=== PATIENT | male | born 1960 | race Caucasian/White ===

== ENCOUNTER 2017-06-04 13:51 | Inpatient (IN) | payer OTHER ==
[2017-06-04] MEDS ORDERED: IOPAMIDOL (ISOVUE 370) 100 ML BTL IV ONE ×2 (14:05→14:29)
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
[2017-06-04 14:10] LABS: ABSOLUTE IMMATURE GRANULOCYTES 0.08 10^3/uL (0.00-0.10); ABSOLUTE NRBC COUNT 0.02 10^3/uL (0-0.01); ADD DIFF? NO; ADD MORPH? NO; ADD SCAN? NO; ATYPICAL LYMPHOCYTE FLAG 0 (0-99); FRAGMENT RBC FLAG 0 (0-99); HEMATOCRIT 46.9 % (40.0-51.0); HEMOGLOBIN 16.4 g/dL (13.7-17.5); LEFT SHIFT FLG 10 (0-99); LIPEMIA HEMOLYSIS FLAG 90 (0-99); MEAN CELL VOLUME 91.6 fL (81.5-99.8); MEAN PLATELET VOLUME 11.2 fL (8.7-11.7); NRBC-AUTO% 0.2 % (0.0-0.2); PLATELET CLUMPS FLAG 20 (0-99); PLATELET COUNT 217 10^3/uL (150-400); RED BLOOD CELL COUNT 5.12 10^6/uL (4.40-6.38); RED CELL DISTRIBUTION WIDTH 13.2 % (11.5-15.2)
[2017-06-04 14:19] LABS: INR 1.13 (0.83-1.16); PROTIME(PATIENT) 14.4 SEC (12.0-15.0)
[2017-06-04 14:20] LABS: APTT 30.5 SEC (23.0-38.0)
[2017-06-04 14:33] LABS: ANION GAP 15 mEq/L (8-16); CALCIUM 9.7 mg/dL (8.5-10.4); CARBON DIOXIDE 23 mEq/l (22-31); CHLORIDE 103 mEq/L (97-110); GLOMERULAR FILTRATION RATE > 60; GLUCOSE 122 mg/dL (70-100); POTASSIUM 3.7 mEq/L (3.5-5.2); SODIUM 141 mEq/L (134-144)
[2017-06-04] MEDS ORDERED: ONDANSETRON 4 MG/2 ML VIAL IVP ONE (14:40)
[2017-06-04] MEDS ORDERED: TDAP ADULT 0.5 ML INJ (BOOSTRIX) IM ONE (14:56)
[2017-06-04] MEDS ORDERED: DESMOPRESSIN ACETATE IV ONE (15:17)
[2017-06-04] MEDS ORDERED: NS IV ONE (15:17)
[2017-06-04] MEDS ORDERED: LET GEL TOPICAL 1 EA SYR TP ONE ×2 (15:40→16:02)
[2017-06-04] MEDS ORDERED: HYDROmorphONE/DILAUDID 1 MG/ML SYR ONE (15:41)
[2017-06-04] MEDS ORDERED: LIDOCAINE 2% JELLY 20 ML (UROJECT) ONE (15:41)
--- NOTE | 2017-06-04 15:42 | SOAPPROG ---
SOAP Progress Note Assessment/Plan: did state to me now that he did not take his ASA in 1 week as he donated Platelets 2 days ago. DDAVP cancelled and platelets cancelled. D/W Dr Daily. 06/04/17 15:41 Objective: PT 14.4 SEC (12.0-15.0) 06/04/17 13:58 INR 1.13 (0.83-1.16) 06/04/17 13:58 ICD10 Worksheet Patient Problems: Problems Problem Status Onset Fracture of occiput Acute Humerus fracture Acute Traumatic fracture of spine at T12-L1 level Acute
[2017-06-04] MEDS ORDERED: HYDROmorphONE/DILAUDID 1 MG/ML SYR IVP ONE (15:43)
--- NOTE | 2017-06-04 15:44 | CPEKG ---
Heart Rate: 110 RR Interval: 545 P-R Interval: 184 QRSD Interval: 104 QT Interval: 344 QTC Interval: 466 P [place]: 58 QRS [place]: 56 T Wave [place]: 8 EKG Severity - BORDERLINE ECG - EKG Impression: SINUS TACHYCARDIA EKG Impression: PROBABLE LEFT ATRIAL ABNORMALITY EKG Impression: BORDERLINE ST DEPRESSION, ANTEROLATERAL LEADS Electronically Signed By: Michelle Daily 04-Jun-2017 21:39:10
[2017-06-04] MEDS: levETIRAcetam 750 MG in NS 100 ML IV SCH ×2 (16:00→21:34)
[2017-06-04] MEDS ORDERED: NALOXONE HCL 0.4 MG/ML INJ IVP PRN (16:12)
[2017-06-04] MEDS ORDERED: HYDROmorphONE/DILAUDID 2 MG/ML INJ IVP PRN (16:16)
[2017-06-04] MEDS ORDERED: ONDANSETRON 4 MG/2 ML VIAL IVP PRN (16:17)
[2017-06-04] MEDS ORDERED: HYDROmorphONE/DILAUDID 2 MG/ML INJ IVP ONE (16:40)
[2017-06-04 18:09] LABS: COLOR PALE YELLOW; HEMATOCRIT 42.3 % (40.0-51.0); HEMOGLOBIN 14.3 g/dL (13.7-17.5); LEUKOCYTE ESTERASE,URINE NEGATIVE (NEGATIVE); MEAN CELL HEMOGLOBIN 32.2 pg (27.9-34.1); MEAN CELL HEMOGLOBIN CONCENTR. 33.8 g/dL (32.4-36.7); MEAN CELL VOLUME 95.3 fL (81.5-99.8); NITRITE,URINE NEGATIVE (NEGATIVE); RED BLOOD CELL COUNT 4.44 10^6/uL (4.40-6.38); RED CELL DISTRIBUTION WIDTH 13.4 % (11.5-15.2)
--- NOTE | 2017-06-04 18:13 | TRAUMAPN ---
Assessment/Plan: patient moved to ICU. repeat head CT with significant increased diffuse cerebral swelling - images reviewed with rads and with Dr. Clayton. patient remains comfortable and neurologically normal at present time. tertiary survey with no new findings. plan to proceed with watchful waiting for now. if decompensates, may require occipital craniectomy. no other new plans for now. not safe for arm ORIF until clear by NS - maintain position of comfort - discussed with Dr. Sanchez Objective: Vital Signs Temp Pulse Resp BP Pulse Ox 36.9 C 116 H 22 H 112/86 H 97 06/04/17 17:30 06/04/17 17:30 06/04/17 17:30 06/04/17 17:30 06/04/17 17:30 06/03/17 06/04/17 06/05/17 05:59 05:59 05:59 Intake Total 1650 Balance 1650 PT 14.4 SEC (12.0-15.0) 06/04/17 13:58 INR 1.13 (0.83-1.16) 06/04/17 13:58
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
[2017-06-04 18:25] LABS: MUCUS TRACE /lpf (NONE-1+)
[2017-06-04 18:28] LABS: WBC,URINE NONE SEEN /hpf (0-3)
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
[2017-06-04] MEDS ORDERED: ALTEPLASE 2 MG VIAL IVP PRN (19:07)
[2017-06-04] MEDS ORDERED: niCARdipine/NACL 200 ML IV PRN (19:12)
[2017-06-04] MEDS ORDERED: SODIUM Cl 3% 500 ML IV SCH (19:30)
--- NOTE | 2017-06-04 19:32 | SOAPPROG ---
SOAP Progress Note Assessment/Plan: Assessment: Currently understood oprthopedic extremity injuries are right shoulder Fx/Disl. Possibly open (type 1) Plan: TO OR for ORIF as soon as NS clears for GETA. Anticipate 750-1000 cc blood loss, and 2 hours of anesthesia. Will eval in AM. Currently holding OR spot at 08:30 06/05/17 06/04/17 19:32 06/04/17 19:33 Subjective: Hurt all over. Right shoulder not necessarily worse then anyother place Objective: Vital Signs Temp Pulse Resp BP Pulse Ox 36.5 C 109 H 13 141/60 H 96 06/04/17 18:00 06/04/17 18:00 06/04/17 18:00 06/04/17 18:00 06/04/17 18:00 Laboratory Results 06/04/17 17:50 06/04/17 17:50 06/03/17 06/04/17 06/05/17 05:59 05:59 05:59 Intake Total 1650 Output Total 1400 Balance 250 PT 14.4 SEC (12.0-15.0) 06/04/17 13:58 INR 1.13 (0.83-1.16) 06/04/17 13:58 Numerous abrasions on all 4 extremities. Puncture wounds (2x) superior right shoulder. Sensation intaci in Radial Median ulnar, Axillry and Musculoccutaneous nerve distribution BUE and intact in Femoral, Peroneal, Tibial and sural nerve distributions BLE. Bounding radial and dorsalis pedis pulses with brisk Cap refill in all digits UE and LE. Paina nd anterior deformity at right Shoulder with crepitace noted upon any shoulder movement. Xrays show comunited fracture dislocation of right proximal humerus. Humeral head is anterior to glenoid, shaft of humerus is generally in normal position. ICD10 Worksheet Patient Problems: Problems Problem Status Onset Fracture of occiput Acute Humerus fracture Acute Traumatic fracture of spine at T12-L1 level Acute
[2017-06-04] MEDS ORDERED: levETIRAcetam 750 MG in NS 100 ML IV SCH (21:00)
[2017-06-04] MEDS: FAMOTIDINE 20 MG/NACL 50 ML IV SCH (21:34)
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
[2017-06-04] MEDS: METOCLOPRAMIDE 10 MG/2 ML VIAL IVP PRN (22:14)
[2017-06-04] MEDS: HYDROmorphONE/DILAUDID 1 MG/ML SYR IVP PRN (22:32)
[2017-06-05] MEDS: HYDROmorphONE/DILAUDID 1 MG/ML SYR IVP PRN ×5 (00:05→08:46)
[2017-06-05 05:44] LABS: HEMATOCRIT 36.6 % (40.0-51.0); HEMOGLOBIN 12.3 g/dL (13.7-17.5); MEAN CELL HEMOGLOBIN 32.4 pg (27.9-34.1); MEAN CELL HEMOGLOBIN CONCENTR. 33.6 g/dL (32.4-36.7); MEAN CELL VOLUME 96.3 fL (81.5-99.8); RED BLOOD CELL COUNT 3.8 10^6/uL (4.40-6.38); RED CELL DISTRIBUTION WIDTH 13.8 % (11.5-15.2)
[2017-06-05 05:54] LABS: INR 1.18 (0.83-1.16)
[2017-06-05 06:03] LABS: ANION GAP 3 mEq/L (8-16); CALCIUM 8.1 mg/dL (8.5-10.4); CARBON DIOXIDE 26 mEq/l (22-31); CHLORIDE 109 mEq/L (97-110); CREATININE 0.8 mg/dL (0.7-1.3); GLOMERULAR FILTRATION RATE > 60; GLUCOSE 138 mg/dL (70-100); POTASSIUM 3.8 mEq/L (3.5-5.2); SODIUM 138 mEq/L (134-144)
[2017-06-05] MEDS ORDERED: SODIUM Cl 3% 500 ML IV SCH (06:30)
[2017-06-05] MEDS ORDERED: BUPIVACAINE/EPI 0.5% 30 ML SDV ONE ×2 (07:08→07:13)
[2017-06-05] MEDS: FAMOTIDINE 20 MG/NACL 50 ML IV SCH ×2 (07:37→20:14)
[2017-06-05] MEDS: levETIRAcetam 750 MG in NS 100 ML IV SCH ×2 (08:30→20:14)
--- NOTE | 2017-06-05 08:36 | SOAPPROG ---
SOAP Progress Note Assessment/Plan: Assessment: Currently understood oprthopedic extremity injuries are right shoulder Fx/Disl. Possibly open (type 1) Plan: TO OR for ORIF as soon as NS clears for GETA. Anticipate 750-1000 cc blood loss, and 2 hours of anesthesia. Will eval in AM. Currently holding OR spot at 08:30 06/05/17 06/04/17 19:32 06/04/17 19:33 06/05/17 08:34 Spoke with N Surg (V) - Feel it better to wait on arm surgery based on last nights head CT. I will postpone surgery today and re-eval tomorrow. Objective: Vital Signs Temp Pulse Resp BP Pulse Ox 36.9 C 79 10 L 133/76 H 99 06/05/17 07:00 06/05/17 08:01 06/05/17 08:01 06/05/17 08:01 06/05/17 08:01 Laboratory Results 06/05/17 05:30 06/05/17 05:30 06/04/17 06/05/17 06/06/17 05:59 05:59 05:59 Intake Total 2749 Output Total 2328 140 Balance 421 -140 PT 15.0 SEC (12.0-15.0) 06/05/17 05:30 INR 1.18 (0.83-1.16) H 06/05/17 05:30 ICD10 Worksheet Patient Problems: Problems Problem Status Onset Fracture of occiput Acute Traumatic fracture of spine at T12-L1 level Acute Humerus fracture Acute
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
--- NOTE | 2017-06-05 08:43 | SOAPPROG ---
SOAP Progress Note Assessment/Plan: Assessment/Plan: R proximal humerus fracture/dislocation HOD#1, also, skull fractures, subarachnoid hemorrhage, multiple spinal fractures - Continue pain management - Continue positioning for comfort RUE; no R shoulder ROM - NWB RUE - SCDs for mechanical prophylaxis - No surgery today for the R shoulder - Surgery once cleared by neurosurgery - Please call with any questions or concerns 06/05/17 08:45 06/05/17 08:49 Subjective: Pt states he is having 6/10 pain in the right shoulder. He has also developed decreased hearing in the L ear. Pt denies fever, chills, chest pain, SOB, abdominal pain, N/V/D, numbness, tingling, headache. Objective: Vital Signs Temp Pulse Resp BP Pulse Ox 36.9 C 79 10 L 133/76 H 99 06/05/17 07:00 06/05/17 08:01 06/05/17 08:01 06/05/17 08:01 06/05/17 08:01 Laboratory Results 06/05/17 05:30 06/05/17 05:30 06/04/17 06/05/17 06/06/17 05:59 05:59 05:59 Intake Total 2749 Output Total 2328 140 Balance 421 -140 PT 15.0 SEC (12.0-15.0) 06/05/17 05:30 INR 1.18 (0.83-1.16) H 06/05/17 05:30 Physical Exam - Physical Exam General Appearance: alert, no apparent distress EENT: PERRL/EOMI Cardiac/Chest: normal peripheral pulses Skin: normal color, warm/dry, other (Dressing intact over RUE) Extremities: normal capillary refill, other (TTP R shoulder. FROM right wrist and hand. Radial pulse 2+), No pedal edema, No calf tenderness, No swelling, No Johnny's sign Neuro/Psych: no motor/sensory deficits (good lute packer or applier strength), alert, normal mood/ affect, oriented x 3 ICD10 Worksheet Patient Problems: Problems Problem Status Onset Fracture of occiput Acute Humerus fracture Acute Traumatic fracture of spine at T12-L1 level Acute
[2017-06-05] MEDS: METOCLOPRAMIDE 10 MG/2 ML VIAL IVP PRN ×2 (09:45→17:05)
[2017-06-05] MEDS ORDERED: NALOXONE HCL 0.4 MG/ML INJ IVP PRN (10:27)
[2017-06-05] MEDS: HYDROmorphONE/DILAUDID 6 MG/30 ML PCA IV PRN ×2 (10:43→23:07)
[2017-06-05] MEDS: NS 1,000 ML IV SCH (14:20)
[2017-06-05] MEDS ORDERED: HYDROmorphONE/DILAUDID 1 MG/ML SYR IVP ONE (17:00)
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
[2017-06-06] MEDS: NS 1,000 ML IV SCH ×2 (05:23→12:38)
[2017-06-06] MEDS: SODIUM Cl 3% 500 ML IV SCH ×2 (05:24→10:45)
[2017-06-06 05:43] LABS: ANION GAP 5 mEq/L (8-16); CALCIUM 7.6 mg/dL (8.5-10.4); CARBON DIOXIDE 28 mEq/l (22-31); CHLORIDE 111 mEq/L (97-110); CREATININE 0.7 mg/dL (0.7-1.3); GLOMERULAR FILTRATION RATE > 60; GLUCOSE 101 mg/dL (70-100); POTASSIUM 3.6 mEq/L (3.5-5.2); SODIUM 144 mEq/L (134-144)
--- NOTE | 2017-06-06 06:55 | SOAPPROG ---
SOAP Progress Note Assessment/Plan: Assessment/Plan: R proximal humerus fracture/dislocation HOD#3, also, skull fractures, subarachnoid hemorrhage, multiple spinal fractures - Surgery today for ORIF R humerus fracture and relocation - Keep NPO - Continue pain management - Continue positioning for comfort RUE; no R shoulder ROM - NWB RUE - SCDs for mechanical prophylaxis - Please call with any questions or concerns 06/05/17 08:45 06/05/17 08:49 06/06/17 06:52 Subjective: Pt states he is doing fairly well and not having any pain currently in the RUE. Pt denies fever, chills, chest pain, SOB, abdominal pain, numbness, tingling, calf pain. Objective: Vital Signs Temp Pulse Resp BP Pulse Ox 37.3 C 84 13 135/63 H 97 06/06/17 04:00 06/06/17 06:00 06/06/17 06:00 06/06/17 06:00 06/06/17 06:00 Laboratory Results 06/05/17 05:30 06/06/17 05:20 06/05/17 06/06/17 06/07/17 05:59 05:59 05:59 Intake Total 2749 3326 Output Total 2328 1495 80 Balance 421 1831 -80 PT 15.0 SEC (12.0-15.0) 06/05/17 05:30 INR 1.18 (0.83-1.16) H 06/05/17 05:30 Physical Exam - Physical Exam General Appearance: alert, no apparent distress Cardiac/Chest: normal peripheral pulses Skin: normal color, warm/dry, other (multiple abrasions RUE) Extremities: normal capillary refill, other (Radial pulse 2+, brisk capillary refill, RUE compartments soft, good salt maker strength), No pedal edema, No calf tenderness, No swelling, No Johnny's sign Neuro/Psych: no motor/sensory deficits, alert, normal mood/affect, oriented x 3 ICD10 Worksheet Patient Problems: Problems Problem Status Onset Fracture of occiput Acute Humerus fracture Acute Traumatic fracture of spine at T12-L1 level Acute Traumatic intracranial subarachnoid hemorrhage Acute
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
[2017-06-06] MEDS: levETIRAcetam 750 MG in NS 100 ML IV SCH ×2 (08:17→21:09)
[2017-06-06] MEDS: FAMOTIDINE 20 MG/NACL 50 ML IV SCH ×2 (08:17→21:56)
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
[2017-06-06] MEDS ORDERED: ceFAZolin 2 GM/DEXTROSE 100 ML IV ONE (10:25)
[2017-06-06] MEDS ORDERED: TETANUS, DIPHTHERIA TOX (7YR+) 0.5 ML INJ IM ONE (10:30)
[2017-06-06] MEDS ORDERED: ALTEPLASE 2 MG VIAL IVP PRN (11:04)
[2017-06-06] MEDS ORDERED: LACTULOSE 20 GM/30 ML UDCUP PO PRN (11:09)
[2017-06-06] MEDS ORDERED: POLYETHYLENE GLYCOL 3350 17 GM PKT PO PRN (11:09)
[2017-06-06] MEDS ORDERED: BISACODYL 10 MG SUPP PR PRN (11:09)
[2017-06-06] MEDS ORDERED: MAGNESIUM HYDROXIDE 30 ML UDCUP PO PRN (11:09)
[2017-06-06] MEDS: HYDROmorphONE/DILAUDID 1 MG/ML SYR IVP PRN ×2 (12:16→15:40)
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
[2017-06-06] MEDS: SENNOSIDES/DOCUSATE SODIUM TAB PO SCH ×2 (13:51→22:36)
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
[2017-06-06] MEDS: HYDROmorphONE/DILAUDID 6 MG/30 ML PCA IV PRN (15:18)
[2017-06-06] MEDS ORDERED: LORazepam 2 MG/ML INJ IV PRN (19:25)
[2017-06-06] MEDS: LORazepam 2 MG/ML INJ IV PRN (21:56)
[2017-06-07] MEDS: LORazepam 2 MG/ML INJ IV PRN ×9 (00:47→23:58)
[2017-06-07 06:14] LABS: ANION GAP 7 mEq/L (8-16); CALCIUM 8.2 mg/dL (8.5-10.4); CARBON DIOXIDE 24 mEq/l (22-31); CHLORIDE 111 mEq/L (97-110); CREATININE 0.6 mg/dL (0.7-1.3); GLOMERULAR FILTRATION RATE > 60; GLUCOSE 102 mg/dL (70-100); POTASSIUM 3.7 mEq/L (3.5-5.2); SODIUM 142 mEq/L (134-144)
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
[2017-06-07] MEDS: levETIRAcetam 750 MG in NS 100 ML IV SCH ×2 (08:36→20:12)
[2017-06-07] MEDS: FAMOTIDINE 20 MG/NACL 50 ML IV SCH ×2 (08:36→20:12)
[2017-06-07] MEDS: SENNOSIDES/DOCUSATE SODIUM TAB PO SCH ×2 (08:37→22:11)
[2017-06-07] MEDS: NS 1,000 ML IV SCH (08:43)
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
[2017-06-07] MEDS: SODIUM Cl 3% 500 ML IV SCH (13:29)
[2017-06-07] MEDS ORDERED: ALBUMIN 5% 500 ML BOTTLE IV ONE ×2 (14:03)
[2017-06-07] MEDS ORDERED: LR 500 ML IV SCH (18:00)
[2017-06-07] MEDS: HYDROmorphONE/DILAUDID 1 MG/ML SYR IVP PRN ×2 (22:49→23:58)
[2017-06-08] MEDS: HYDROmorphONE/DILAUDID 1 MG/ML SYR IVP PRN ×9 (01:26→23:58)
[2017-06-08] MEDS: LORazepam 2 MG/ML INJ IV PRN ×6 (01:26→21:13)
[2017-06-08 06:00] LABS: ANION GAP 6 mEq/L (8-16); CALCIUM 7.9 mg/dL (8.5-10.4); CARBON DIOXIDE 28 mEq/l (22-31); CHLORIDE 111 mEq/L (97-110); CREATININE 0.6 mg/dL (0.7-1.3); GLOMERULAR FILTRATION RATE > 60; GLUCOSE 99 mg/dL (70-100); POTASSIUM 3.7 mEq/L (3.5-5.2); SODIUM 145 mEq/L (134-144)
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
[2017-06-08] MEDS: SODIUM Cl 3% 500 ML IV SCH (09:48)
[2017-06-08] MEDS: levETIRAcetam 750 MG in NS 100 ML IV SCH ×2 (09:48→20:14)
[2017-06-08] MEDS: FAMOTIDINE 20 MG/NACL 50 ML IV SCH ×2 (09:48→20:14)
[2017-06-08] MEDS: SENNOSIDES/DOCUSATE SODIUM TAB PO SCH ×2 (09:48→20:14)
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
[2017-06-08] MEDS: OLANZapine 5 MG TAB PO SCH (20:14)
[2017-06-09] MEDS: HYDROmorphONE/DILAUDID 1 MG/ML SYR IVP PRN ×6 (02:16→16:07)
[2017-06-09 04:58] LABS: ANION GAP 8 mEq/L (8-16); CALCIUM 7.9 mg/dL (8.5-10.4); CARBON DIOXIDE 25 mEq/l (22-31); CHLORIDE 111 mEq/L (97-110); CREATININE 0.6 mg/dL (0.7-1.3); GLOMERULAR FILTRATION RATE > 60; GLUCOSE 103 mg/dL (70-100); POTASSIUM 3.4 mEq/L (3.5-5.2); SODIUM 144 mEq/L (134-144)
[2017-06-09] MEDS: levETIRAcetam 750 MG in NS 100 ML IV SCH ×2 (08:02→20:05)
[2017-06-09] MEDS: FAMOTIDINE 20 MG/NACL 50 ML IV SCH ×2 (08:02→19:28)
[2017-06-09] MEDS: SENNOSIDES/DOCUSATE SODIUM TAB PO SCH ×2 (08:08→21:11)
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
[2017-06-09 10:24] LABS: % IMMATURE GRANULYOCYTES 0.4 % (0.0-1.1); ABSOLUTE IMMATURE GRANULOCYTES 0.03 10^3/uL (0.00-0.10); ADD DIFF? NO; ADD MORPH? NO; ADD SCAN? NO; ATYPICAL LYMPHOCYTE FLAG 0 (0-99); FRAGMENT RBC FLAG 0 (0-99); HEMATOCRIT 28.5 % (40.0-51.0); HEMOGLOBIN 9.7 g/dL (13.7-17.5); LEFT SHIFT FLG 0 (0-99); LIPEMIA HEMOLYSIS FLAG 90 (0-99); MEAN CELL HEMOGLOBIN 32.3 pg (27.9-34.1); MEAN PLATELET VOLUME 11.1 fL (8.7-11.7); PLATELET CLUMPS FLAG 0 (0-99); PLATELET COUNT 146 10^3/uL (150-400); RED CELL DISTRIBUTION WIDTH 13.2 % (11.5-15.2)
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
[2017-06-09] MEDS: ACETAMINOPHEN 500 MG TAB PO PRN ×2 (12:46→21:11)
[2017-06-09] MEDS: OLANZapine 5 MG TAB PO SCH (21:12)
[2017-06-10] MEDS: HYDROmorphONE/DILAUDID 1 MG/ML SYR IVP PRN ×4 (01:46→23:20)
[2017-06-10] MEDS: SENNOSIDES/DOCUSATE SODIUM TAB PO SCH ×2 (07:22→21:00)
[2017-06-10] MEDS: ACETAMINOPHEN 500 MG TAB PO PRN ×3 (07:23→20:59)
[2017-06-10] MEDS: FAMOTIDINE 20 MG/NACL 50 ML IV SCH (07:24)
[2017-06-10] MEDS: levETIRAcetam 750 MG in NS 100 ML IV SCH (07:24)
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
[2017-06-10] MEDS ORDERED: levETIRAcetam 750 MG in NS 100 ML IV ONE (09:00)
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
--- NOTE | 2017-06-10 11:41 | WOCRNPDOC ---
WOCRN Advanced Assessment Note - Skin Integrity Problem, Advanced Assess Bilateral Knee Abrasion Dressing Type: Open to Air Exudate Amount: None Wound Bed Color: Brown Wound Bed Constitution: Scab Wound Edges: Well Defined Site Odor: None Site Measurement - Head-to-Toe Length X Width X Depth (cm): L knee x 4 scabbed, dry abrasions. R knee x 3 scabbed, dry abrasions Skin Integrity Problem Comment: Multiple large, scabbed abrasions noted across bilateral knees, w/ no significant vince-wound swelling or erythema observed. Recommend keeping these abrasions covered to facilitate faster healing and protect. Orders written for wound gel and foam dressings to be changed q3days. Wound care does not need to follow these wounds going forward, and nursing is advised to re-consult w/ any concerns. Right Elbow Abrasion Dressing Type: Adaptic Touch, Myrna, Mepilex Dressing Description: Intact Exudate Amount: Minimal Exudate Color: Reddish/Yellow Exudate Characteristic(s): Serosanguinous Vince Wound Swelling: Mild Wound Bed Color: Red, Yellow, Campuzano Wound Bed Constitution: Smooth Tissue (non-granulating in proximal abrasion), Loose Slough (in distal abrasion) Site Odor: None Skin Integrity Problem Comment: There are two, discrete abrasions both above and below patient's R elbow. Wound RN consulted by fish cleaner machine tender Ruth because these abrasions are exudative and appear deeper than patient's other abrasions. Distal abrasion is bordering on full-thickness, w/ a layer of yellow/madison slough across most of the wound bed. Proximal wound bed is mostly non- granulating smooth tissue, no apparent necrosis. Will have nursing apply Manukatex honey contact layer to both wounds, primarily to help debride the distal wound through autolysis and provide a moist wound healing environment. Wound RN will follow up w/ patient on 06/12 to assess efficacy. fish cleaner machine tender Ruth present and assisting.
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
[2017-06-10] MEDS: levETIRAcetam 500 MG TAB PO SCH (20:50)
[2017-06-10] MEDS: OLANZapine 5 MG TAB PO SCH (20:50)
[2017-06-10] MEDS: FAMOTIDINE 20 MG TAB PO SCH (20:50)
[2017-06-11] MEDS: ACETAMINOPHEN 500 MG TAB PO PRN ×2 (05:55→14:04)
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
[2017-06-11 08:13] LABS: ANION GAP 8 mEq/L (8-16); CALCIUM 7.9 mg/dL (8.5-10.4); CARBON DIOXIDE 26 mEq/l (22-31); CHLORIDE 104 mEq/L (97-110); CREATININE 0.7 mg/dL (0.7-1.3); GLOMERULAR FILTRATION RATE > 60; GLUCOSE 99 mg/dL (70-100); POTASSIUM 3.3 mEq/L (3.5-5.2); SODIUM 138 mEq/L (134-144)
[2017-06-11] MEDS: levETIRAcetam 500 MG TAB PO SCH ×2 (08:20→20:26)
[2017-06-11] MEDS: HYDROCHLOROTHIAZIDE 25 MG TAB PO SCH (08:21)
[2017-06-11] MEDS: FAMOTIDINE 20 MG TAB PO SCH ×2 (08:21→20:26)
[2017-06-11] MEDS: SENNOSIDES/DOCUSATE SODIUM TAB PO SCH ×2 (08:27→20:27)
[2017-06-11] MEDS ORDERED: PROTOCOL POTASSIUM 1 DOSE MISC PRN (09:32)
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
[2017-06-11] MEDS ORDERED: POTASSIUM CL 10 MEQ TAB PO ONE ×2 (10:56→21:08)
[2017-06-11] MEDS: HYDROmorphONE/DILAUDID 1 MG/ML SYR IVP PRN ×3 (12:01→20:24)
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
[2017-06-11] MEDS: SODIUM CHLORIDE 1,000 MG TAB PO SCH (17:11)
[2017-06-11 18:41] LABS: POTASSIUM 3.6 mEq/L (3.5-5.2)
[2017-06-11] MEDS: OLANZapine 5 MG TAB PO SCH (20:26)
[2017-06-11] MEDS: CYCLOBENZAPRINE 10 MG TAB PO PRN (21:14)
[2017-06-11] MEDS: oxyCODONE IR 5 MG TAB PO PRN (21:14)
[2017-06-11] MEDS: LORazepam 2 MG/ML INJ IV PRN (21:47)
[2017-06-12] MEDS: oxyCODONE IR 5 MG TAB PO PRN ×2 (04:11→16:28)
[2017-06-12 04:34] LABS: % IMMATURE GRANULYOCYTES 0.7 % (0.0-1.1); ABSOLUTE IMMATURE GRANULOCYTES 0.04 10^3/uL (0.00-0.10); ADD DIFF? NO; ADD MORPH? NO; ADD SCAN? NO; ATYPICAL LYMPHOCYTE FLAG 40 (0-99); FRAGMENT RBC FLAG 0 (0-99); HEMATOCRIT 27.5 % (40.0-51.0); HEMOGLOBIN 9.4 g/dL (13.7-17.5); LEFT SHIFT FLG 0 (0-99); LIPEMIA HEMOLYSIS FLAG 90 (0-99); MEAN CELL HEMOGLOBIN 31.9 pg (27.9-34.1); MEAN CELL HEMOGLOBIN CONCENTR. 34.2 g/dL (32.4-36.7); MEAN CELL VOLUME 93.2 fL (81.5-99.8); MEAN PLATELET VOLUME 10.8 fL (8.7-11.7); PLATELET CLUMPS FLAG 0 (0-99); PLATELET COUNT 219 10^3/uL (150-400); RED BLOOD CELL COUNT 2.95 10^6/uL (4.40-6.38); RED CELL DISTRIBUTION WIDTH 13.2 % (11.5-15.2)
[2017-06-12 04:52] LABS: INR 1.19 (0.83-1.16); PROTIME(PATIENT) 15.1 SEC (12.0-15.0)
[2017-06-12 04:53] LABS: APTT 31.7 SEC (23.0-38.0)
[2017-06-12 05:08] LABS: ANION GAP 8 mEq/L (8-16); CALCIUM 8.3 mg/dL (8.5-10.4); CARBON DIOXIDE 25 mEq/l (22-31); CHLORIDE 101 mEq/L (97-110); CREATININE 0.7 mg/dL (0.7-1.3); GLOMERULAR FILTRATION RATE > 60; GLUCOSE 94 mg/dL (70-100); POTASSIUM 3.6 mEq/L (3.5-5.2); SODIUM 134 mEq/L (134-144)
[2017-06-12] MEDS ORDERED: POTASSIUM CL 10 MEQ TAB PO ONE (06:41)
[2017-06-12] MEDS ORDERED: BUPIVACAINE/EPI 0.5% 30 ML SDV ONE ×2 (07:57→09:13)
[2017-06-12] MEDS ORDERED: BACITRACIN 50,000 UNITS/10 ML SYR IRR ONE (07:57)
[2017-06-12] MEDS ORDERED: POLYMYXIN B SULFATE 500,000 UNIT/10 ML SYR IRR ONE ×2 (07:57→09:13)
[2017-06-12] MEDS: HYDROmorphONE/DILAUDID 1 MG/ML SYR IVP PRN (08:12)
[2017-06-12] MEDS: POTASSIUM Cl (KCl) 50 ML IV SCH ×3 (08:17→11:32)
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
[2017-06-12] MEDS ORDERED: HYDROmorphONE/DILAUDID 2 MG/ML INJ ONE (09:26)
[2017-06-12] MEDS ORDERED: LIDOCAINE 2% 100 MG/5 ML SYR ONE (09:27)
[2017-06-12] MEDS ORDERED: DEXAMETHASONE 4 MG/ML VIAL ONE (09:27)
[2017-06-12] MEDS ORDERED: ONDANSETRON 4 MG/2 ML VIAL ONE (09:27)
[2017-06-12] MEDS ORDERED: PROPOFOL 200 MG/20 ML VIAL ONE (09:27)
[2017-06-12] MEDS: levETIRAcetam 500 MG TAB PO SCH ×2 (09:28→21:06)
[2017-06-12] MEDS: SENNOSIDES/DOCUSATE SODIUM TAB PO SCH ×2 (09:29→21:07)
[2017-06-12] MEDS ORDERED: ceFAZolin 1 GM VIAL ONE ×2 (09:56)
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
[2017-06-12] MEDS ORDERED: PHENYLEPHRINE HCL 100 MCG/ML SYR ONE (10:49)
[2017-06-12] MEDS ORDERED: fentaNYL 100 MCG/2 ML INJ IVP PRN (11:22)
[2017-06-12] MEDS ORDERED: ACETAMINOPHEN 500 MG TAB PO PRN (11:22)
[2017-06-12] MEDS ORDERED: OXYCODONE/APAP 5/325 TAB PO PRN (11:22)
[2017-06-12] MEDS ORDERED: HYDROCODONE/APAP 5/325 TAB PO PRN ×2 (11:22→13:21)
[2017-06-12] MEDS ORDERED: NALOXONE HCL 0.4 MG/ML INJ IVP PRN (11:22)
[2017-06-12] MEDS ORDERED: ONDANSETRON 4 MG/2 ML VIAL IVP PRN (11:22)
[2017-06-12] MEDS ORDERED: DEXAMETHASONE 4 MG/ML VIAL IVP PRN (11:22)
[2017-06-12] MEDS ORDERED: HYDROmorphONE/DILAUDID 1 MG/ML SYR IVP PRN (11:22)
[2017-06-12] MEDS ORDERED: MEPERIDINE 25 MG/ML SYR IVP PRN (11:22)
--- NOTE | 2017-06-12 11:26 | POSTANESTH ---
Post Anesthetic Evaluation Cardiovascular Status: Normal, Stable, Similar to Pre-Op Cond Respiratory Status: Normal, Stable, Similar to Pre-op Cond. Level of Consciousness/Mental Status: Can Participate in Eval, Moderately Sleepy Pain Control: Adequate, Prn Tx Ordered Nausea/Vomiting Control: Adequate, Prn Tx Ordered Complications Possibly Related to Anesthesia: None Noted
[2017-06-12] MEDS ORDERED: PHENYLEPHRINE 10 MG/ML SDV ONE (11:45)
--- NOTE | 2017-06-12 13:21 | POSTOPPROG ---
Post Op Note Date of Operation: 06/12/17 Surgeon: Tony Sanchez Swimming Pool Plasterer Helper: Nu KAISER Anesthesia: LMA Pre-op Diagnosis: Right proximal humerus fracture, dislocation Post-op Diagnosis: Right proximal humerus fracture, dislocation Procedure: ORIF right proximal humerus Findings: As above, please see full dictation for details Inf/Abcess present in the surg proc area at time of surgery?: No Depth: Deep Incisional (Fascial) EBL: 100-500
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
[2017-06-12] MEDS ORDERED: NS 1,000 ML IV SCH (13:30)
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
[2017-06-12] MEDS: SODIUM CHLORIDE 1,000 MG TAB PO SCH ×2 (14:28→16:27)
[2017-06-12] MEDS: FAMOTIDINE 20 MG TAB PO SCH (14:31)
[2017-06-12] MEDS: HYDROCHLOROTHIAZIDE 25 MG TAB PO SCH (14:50)
[2017-06-12] MEDS: ceFAZolin 2 GM/DEXTROSE 100 ML IV SCH (14:54)
[2017-06-12] MEDS: ACETAMINOPHEN 500 MG TAB PO PRN (16:28)
[2017-06-12] MEDS: CYCLOBENZAPRINE 10 MG TAB PO PRN (18:34)
[2017-06-13] MEDS: OLANZapine 5 MG TAB PO SCH ×2 (00:46→21:42)
[2017-06-13] MEDS: oxyCODONE IR 5 MG TAB PO PRN ×4 (00:49→20:10)
[2017-06-13] MEDS ORDERED: POTASSIUM Cl (KCl) 20 MEQ in D5W NS 1,000 ML IV SCH (01:30)
[2017-06-13] MEDS ORDERED: D5W NS W/ 20 KCl/L 1,000 ML IV SCH (02:00)
[2017-06-13] MEDS ORDERED: POTASSIUM CL 10 MEQ TAB PO ONE ×2 (02:51→12:05)
[2017-06-13] MEDS: ceFAZolin 2 GM/DEXTROSE 100 ML IV SCH (02:56)
[2017-06-13 05:25] LABS: HEMATOCRIT 27.1 % (40.0-51.0); HEMOGLOBIN 9.1 g/dL (13.7-17.5)
[2017-06-13 05:45] LABS: ANION GAP 9 mEq/L (8-16); CALCIUM 8.3 mg/dL (8.5-10.4); CARBON DIOXIDE 25 mEq/l (22-31); CHLORIDE 102 mEq/L (97-110); CREATININE 0.7 mg/dL (0.7-1.3); GLOMERULAR FILTRATION RATE > 60; GLUCOSE 115 mg/dL (70-100); POTASSIUM 3.7 mEq/L (3.5-5.2); SODIUM 136 mEq/L (134-144)
[2017-06-13] MEDS: HYDROCHLOROTHIAZIDE 25 MG TAB PO SCH (08:35)
[2017-06-13] MEDS: FERROUS SULFATE 325 MG TAB PO SCH (08:35)
[2017-06-13] MEDS: SENNOSIDES/DOCUSATE SODIUM TAB PO SCH ×2 (08:36→21:40)
[2017-06-13] MEDS: levETIRAcetam 500 MG TAB PO SCH ×2 (08:36→21:38)
[2017-06-13] MEDS: SODIUM CHLORIDE 1,000 MG TAB PO SCH ×2 (08:36→21:41)
[2017-06-13] MEDS: ACETAMINOPHEN 500 MG TAB PO PRN (08:42)
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
[2017-06-13] MEDS ORDERED: THROMBIN (BOVINE) 5,000 UNIT VIAL TP ONE (13:24)
[2017-06-13] MEDS ORDERED: BUPIVACAINE 0.25% 30 ML SDV ONE ×2 (13:25→17:24)
[2017-06-13] MEDS ORDERED: BACITRACIN 50,000 UNITS/10 ML SYR IRR ONE (13:25)
[2017-06-13] MEDS ORDERED: CHLORHEXIDINE GLUC HIBICLENS 118 ML BTL TP ONE (13:26)
[2017-06-13] MEDS ORDERED: MIDAZOLAM 2 MG/2 ML VIAL ONE (14:45)
[2017-06-13] MEDS ORDERED: MIDAZOLAM 2 MG/2 ML VIAL IVP ONE (14:50)
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
[2017-06-13] MEDS ORDERED: fentaNYL 100 MCG/2 ML INJ ONE ×2 (14:56→16:12)
[2017-06-13] MEDS ORDERED: DEXAMETHASONE 4 MG/ML VIAL ONE (14:56)
[2017-06-13] MEDS ORDERED: ONDANSETRON 4 MG/2 ML VIAL ONE (14:56)
[2017-06-13] MEDS ORDERED: PROPOFOL 200 MG/20 ML VIAL ONE (14:56)
[2017-06-13] MEDS ORDERED: LIDOCAINE 2% 100 MG/5 ML SYR ONE (14:56)
[2017-06-13] MEDS ORDERED: ROCURONIUM 50 MG/5 ML VIAL ONE (14:56)
[2017-06-13] MEDS ORDERED: PROPOFOL/EMULSION 500 MG/50 ML BOTTLE IV ONE (14:56)
[2017-06-13] MEDS ORDERED: REMIFENTANIL HCL 1 MG VIAL ONE (14:56)
[2017-06-13] MEDS ORDERED: HYDROmorphONE/DILAUDID 2 MG/ML INJ ONE (14:56)
[2017-06-13] MEDS ORDERED: ceFAZolin 2 GM/DEXTROSE 100 ML IV ONE (15:00)
[2017-06-13] MEDS ORDERED: fentaNYL 100 MCG/2 ML INJ IT ONE (15:30)
[2017-06-13] MEDS ORDERED: morphINE PF 5 MG/10 ML INJ IT ONE (15:30)
[2017-06-13] MEDS ORDERED: TRANEXAMIC ACID 900 MG in NS 100 ML IV ONE (16:30)
[2017-06-13] MEDS ORDERED: ceFAZolin 1 GM VIAL ONE (17:31)
[2017-06-13] MEDS ORDERED: LACTULOSE 20 GM/30 ML UDCUP PO PRN (17:48)
--- NOTE | 2017-06-13 17:48 | POSTOPPROG ---
Post Op Note Date of Operation: 06/13/17 Surgeon: Prince Farias Hay Buckler: Pau Anesthesiologist: Lisette Anesthesia: GET(General Endotracheal) Pre-op Diagnosis: L1 burst fracture Post-op Diagnosis: L1 burst fracture Indication: back pain Procedure: T12-L2 fusion Findings: fracture Inf/Abcess present in the surg proc area at time of surgery?: No EBL: 50-100 Complications: none Drains: Yung Mon (to bulb suction)
[2017-06-13] MEDS ORDERED: NS 1,000 ML IV SCH (18:00)
[2017-06-13] MEDS ORDERED: MEPERIDINE 25 MG/ML SYR IVP PRN (18:01)
[2017-06-13] MEDS ORDERED: NALOXONE HCL 0.4 MG/ML INJ IVP PRN (18:01)
[2017-06-13] MEDS ORDERED: DEXAMETHASONE 4 MG/ML VIAL IVP PRN (18:01)
[2017-06-13] MEDS ORDERED: OXYCODONE/APAP 5/325 TAB PO PRN (18:01)
[2017-06-13] MEDS ORDERED: morphINE PCA 30 MG/30 ML PCA IV PRN (18:01)
[2017-06-13] MEDS ORDERED: fentaNYL 100 MCG/2 ML INJ IVP PRN (18:01)
[2017-06-13] MEDS ORDERED: PROMETHAZINE HCL 25 MG/ML INJ IVP PRN (18:01)
[2017-06-13] MEDS ORDERED: HYDROmorphONE/DILAUDID 1 MG/ML SYR IVP PRN (18:01)
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
[2017-06-13 19:51] LABS: POTASSIUM 4.4 mEq/L (3.5-5.2)
[2017-06-13] MEDS: METHOCARBAMOL 750 MG TAB PO PRN (20:09)
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
[2017-06-13] MEDS: FAMOTIDINE 20 MG TAB PO SCH (20:10)
[2017-06-13] MEDS ORDERED: morphINE SR 15 MG TAB PO SCH (21:00)
[2017-06-14] MEDS: METHOCARBAMOL 750 MG TAB PO PRN ×4 (01:59→20:16)
[2017-06-14] MEDS: ACETAMINOPHEN 500 MG TAB PO PRN (01:59)
[2017-06-14] MEDS: oxyCODONE IR 5 MG TAB PO PRN ×6 (02:00→22:13)
[2017-06-14 05:53] LABS: % IMMATURE GRANULYOCYTES 0.7 % (0.0-1.1); ABSOLUTE IMMATURE GRANULOCYTES 0.08 10^3/uL (0.00-0.10); ADD DIFF? NO; ADD MORPH? NO; ADD SCAN? NO; ATYPICAL LYMPHOCYTE FLAG 20 (0-99); FRAGMENT RBC FLAG 0 (0-99); HEMATOCRIT 25.5 % (40.0-51.0); HEMOGLOBIN 8.6 g/dL (13.7-17.5); LEFT SHIFT FLG 10 (0-99); LIPEMIA HEMOLYSIS FLAG 80 (0-99); MEAN CELL HEMOGLOBIN 32.3 pg (27.9-34.1); MEAN CELL HEMOGLOBIN CONCENTR. 33.7 g/dL (32.4-36.7); MEAN CELL VOLUME 95.9 fL (81.5-99.8); MEAN PLATELET VOLUME 10.5 fL (8.7-11.7); PLATELET CLUMPS FLAG 0 (0-99); PLATELET COUNT 259 10^3/uL (150-400); RED BLOOD CELL COUNT 2.66 10^6/uL (4.40-6.38); RED CELL DISTRIBUTION WIDTH 13.6 % (11.5-15.2)
[2017-06-14 06:15] LABS: ANION GAP 7 mEq/L (8-16); CALCIUM 8.2 mg/dL (8.5-10.4); CARBON DIOXIDE 25 mEq/l (22-31); CHLORIDE 103 mEq/L (97-110); CREATININE 0.6 mg/dL (0.7-1.3); GLOMERULAR FILTRATION RATE > 60; GLUCOSE 111 mg/dL (70-100); POTASSIUM 4.1 mEq/L (3.5-5.2); SODIUM 135 mEq/L (134-144)
[2017-06-14] MEDS: FERROUS SULFATE 325 MG TAB PO SCH (08:08)
[2017-06-14] MEDS: levETIRAcetam 500 MG TAB PO SCH ×2 (08:08→20:15)
[2017-06-14] MEDS: HYDROCHLOROTHIAZIDE 25 MG TAB PO SCH (08:12)
[2017-06-14] MEDS: SODIUM CHLORIDE 1,000 MG TAB PO SCH ×2 (08:12→17:32)
[2017-06-14] MEDS: SENNOSIDES/DOCUSATE SODIUM TAB PO SCH ×2 (08:13→20:17)
[2017-06-14] MEDS: FAMOTIDINE 20 MG TAB PO SCH ×2 (08:13→20:17)
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
--- NOTE | 2017-06-14 11:05 | GOP ---
[f rep st] OPERATIVE REPORT DATE OF OPERATION: 06/13/2017 SURGEON: Prince Farias MD SORTER PACKER: BRI Davis. ANESTHESIA: General endotracheal. PREOPERATIVE DIAGNOSIS: L1 unstable traumatic burst fracture with retropulsion of bone and signific ant loss of height. POSTOPERATIVE DIAGNOSIS: L1 unstable traumatic burst fracture with retropulsion of bone and signifi cant loss of height. PROCEDURE PERFORMED: T12 through L2 posterior segmental (pedicle screw) fixation and posterior late ral fusion with local autograft, bone morphogenic protein and morselized allograft. Use of intraope rative microscopy and fluoroscopy and computer volumetric stereotactic navigation. FINDINGS: ESTIMATED BLOOD LOSS: 50 cc. INDICATIONS: The patient is a 57-year-old man with a traumatic L1 burst fracture with retropulsion of bone and significant loss of height. This is an unstable fracture, was at high risk for progress ion. He presents now for stabilization/fusion from T12 to L2 after a detailed discussion with the p atjaime and his involving all of the potential options including bracing and others nonsurgical options. DESCRIPTION OF PROCEDURE: After informed consent was obtained, the patient was taken to the operati ng room, placed in a prone position on a Yung table. The thoracolumbar areas were prepped and dr aped in a sterile fashion. After fluoroscopic localization of the correct levels, the subcutaneous and intramuscular tissues were infiltrated with local anesthesia. A midline linear incision was the n created from approximately T12 through L1. This was carried down to the fascial layer, which was incised using monopolar electrocautery and carried in the subfascial plane along the spinous process es and lamina bilaterally. Intraoperative fluoroscopy was again utilized to verify the correct leve ls. The dissection was then carried out over the facet joints. The O-arm neuronavigational system was then brought in and 3D reconstructed images obtained. Using computer volumetric stereotactic na vigation, pedicle screws were placed at T12, L1 and L2 bilaterally. Each individual screw was teste d neurophysiologically with monopolar electrostimulation and interpretation of the potentials by the surgeon. Good position of the screws was then re-verified using the O-arm neuronavigational system . The rods were then placed and secured and the facet joints and lamina were extensively decorticat ed and the local autograft from the decortication along with bone morphogenic protein and morselized allograft was placed out laterally for posterolateral fusion from T12 through L2. The subcutaneous and intramuscular tissues were then re-infiltrated with local anesthesia. A drain was placed and t he wound was closed in a layered fashion using interrupted Vicryl sutures followed by Steri-Strips o n the skin. COMPLICATIONS: None. DISPOSITION: The patient was extubated and transferred to the recovery room in stable condition. /[id number]/MODL
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
[2017-06-14 18:10] LABS: POTASSIUM 3.8 mEq/L (3.5-5.2)
[2017-06-14] MEDS ORDERED: POTASSIUM CL 10 MEQ TAB PO ONE (19:36)
[2017-06-14] MEDS: OLANZapine 5 MG TAB PO SCH (20:16)
[2017-06-15] MEDS: METHOCARBAMOL 750 MG TAB PO PRN (05:28)
[2017-06-15 05:42] LABS: ANION GAP 9 mEq/L (8-16); CALCIUM 8.6 mg/dL (8.5-10.4); CARBON DIOXIDE 25 mEq/l (22-31); CHLORIDE 100 mEq/L (97-110); CREATININE 0.7 mg/dL (0.7-1.3); GLOMERULAR FILTRATION RATE > 60; GLUCOSE 104 mg/dL (70-100); POTASSIUM 4.1 mEq/L (3.5-5.2); SODIUM 134 mEq/L (134-144)
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
[2017-06-15] MEDS: levETIRAcetam 500 MG TAB PO SCH ×2 (09:16→19:44)
[2017-06-15] MEDS: SODIUM CHLORIDE 1,000 MG TAB PO SCH ×2 (09:16→17:53)
[2017-06-15] MEDS: SENNOSIDES/DOCUSATE SODIUM TAB PO SCH ×2 (09:17→19:43)
[2017-06-15] MEDS: HYDROCHLOROTHIAZIDE 25 MG TAB PO SCH (09:17)
[2017-06-15] MEDS: FAMOTIDINE 20 MG TAB PO SCH ×2 (09:17→19:43)
[2017-06-15] MEDS: CYCLOBENZAPRINE 10 MG TAB PO PRN ×2 (09:18→21:13)
[2017-06-15] MEDS: FERROUS SULFATE 325 MG TAB PO SCH (09:18)
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
[2017-06-15] MEDS: oxyCODONE IR 5 MG TAB PO PRN ×2 (11:28→16:44)
[2017-06-15] MEDS: ENOXAPARIN 40 MG/0.4 ML SYR SC SCH (17:53)
[2017-06-15] MEDS: OLANZapine 5 MG TAB PO SCH (19:43)
[2017-06-15 20:30] LABS: POTASSIUM 3.9 mEq/L (3.5-5.2)
[2017-06-15] MEDS ORDERED: POTASSIUM CL 10 MEQ TAB PO ONE (20:49)
[2017-06-16 06:10] LABS: ANION GAP 6 mEq/L (8-16); CALCIUM 8.3 mg/dL (8.5-10.4); CARBON DIOXIDE 27 mEq/l (22-31); CHLORIDE 100 mEq/L (97-110); CREATININE 0.7 mg/dL (0.7-1.3); GLOMERULAR FILTRATION RATE > 60; GLUCOSE 95 mg/dL (70-100); POTASSIUM 3.9 mEq/L (3.5-5.2); SODIUM 133 mEq/L (134-144)
[2017-06-16] MEDS ORDERED: POTASSIUM CL 10 MEQ TAB PO ONE (07:44)
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
[2017-06-16] MEDS: FERROUS SULFATE 325 MG TAB PO SCH (08:52)
[2017-06-16] MEDS: levETIRAcetam 500 MG TAB PO SCH ×2 (08:52→19:59)
[2017-06-16] MEDS: HYDROCHLOROTHIAZIDE 25 MG TAB PO SCH (08:52)
[2017-06-16] MEDS: FAMOTIDINE 20 MG TAB PO SCH ×2 (08:52→19:58)
[2017-06-16] MEDS: SENNOSIDES/DOCUSATE SODIUM TAB PO SCH ×2 (08:52→19:57)
[2017-06-16] MEDS: ENOXAPARIN 40 MG/0.4 ML SYR SC SCH (08:53)
[2017-06-16] MEDS: SODIUM CHLORIDE 1,000 MG TAB PO SCH ×2 (08:53→16:24)
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
[2017-06-16] MEDS ORDERED: CALCIUM CARBONATE 500 MG CHEWABLE TAB PO PRN (17:21)
[2017-06-16 18:01] LABS: POTASSIUM 3.7 mEq/L (3.5-5.2)
[2017-06-16] MEDS: ACETAMINOPHEN 500 MG TAB PO PRN (19:56)
[2017-06-16] MEDS: OLANZapine 5 MG TAB PO SCH (19:57)
[2017-06-16] MEDS: METHOCARBAMOL 750 MG TAB PO PRN (19:58)
[2017-06-16] MEDS: oxyCODONE IR 5 MG TAB PO PRN (19:58)
[2017-06-17 04:34] LABS: ANION GAP 6 mEq/L (8-16); CALCIUM 8.4 mg/dL (8.5-10.4); CARBON DIOXIDE 28 mEq/l (22-31); CHLORIDE 101 mEq/L (97-110); CREATININE 0.7 mg/dL (0.7-1.3); GLOMERULAR FILTRATION RATE > 60; GLUCOSE 102 mg/dL (70-100); POTASSIUM 3.6 mEq/L (3.5-5.2); SODIUM 135 mEq/L (134-144)
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
[2017-06-17] MEDS: ENOXAPARIN 40 MG/0.4 ML SYR SC SCH (09:52)
[2017-06-17] MEDS: SENNOSIDES/DOCUSATE SODIUM TAB PO SCH ×2 (09:52→20:17)
[2017-06-17] MEDS: FERROUS SULFATE 325 MG TAB PO SCH (09:52)
[2017-06-17] MEDS: FAMOTIDINE 20 MG TAB PO SCH ×2 (09:53→20:17)
[2017-06-17] MEDS: HYDROCHLOROTHIAZIDE 25 MG TAB PO SCH (09:53)
[2017-06-17] MEDS: SODIUM CHLORIDE 1,000 MG TAB PO SCH ×2 (09:54→17:02)
[2017-06-17] MEDS: levETIRAcetam 500 MG TAB PO SCH ×2 (09:54→20:18)
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
[2017-06-17] MEDS: METHOCARBAMOL 750 MG TAB PO PRN (17:02)
[2017-06-17 18:05] LABS: POTASSIUM 3.7 mEq/L (3.5-5.2)
[2017-06-17] MEDS ORDERED: POTASSIUM CL 10 MEQ TAB PO ONE (19:47)
[2017-06-17] MEDS: OLANZapine 5 MG TAB PO SCH (20:17)
[2017-06-18 00:08] VITALS: TEMP 98.1
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
[2017-06-18 05:11] LABS: HEMATOCRIT 24.3 % (40.0-51.0); HEMOGLOBIN 7.9 g/dL (13.7-17.5); MEAN CELL HEMOGLOBIN CONCENTR. 32.5 g/dL (32.4-36.7); MEAN CELL VOLUME 95.3 fL (81.5-99.8); RED BLOOD CELL COUNT 2.55 10^6/uL (4.40-6.38); RED CELL DISTRIBUTION WIDTH 13.6 % (11.5-15.2)
[2017-06-18 05:20] LABS: POTASSIUM 3.8 mEq/L (3.5-5.2)
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
[2017-06-18 07:21] VITALS: BP 133/78; PULSE 77; RESP 16; O2SAT 93
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
[2017-06-18] MEDS: levETIRAcetam 500 MG TAB PO SCH (08:55)
[2017-06-18] MEDS: ENOXAPARIN 40 MG/0.4 ML SYR SC SCH (08:55)
[2017-06-18] MEDS: SODIUM CHLORIDE 1,000 MG TAB PO SCH (08:55)
[2017-06-18] MEDS: SENNOSIDES/DOCUSATE SODIUM TAB PO SCH (08:55)
[2017-06-18] MEDS: HYDROCHLOROTHIAZIDE 25 MG TAB PO SCH (08:56)
[2017-06-18] MEDS: FAMOTIDINE 20 MG TAB PO SCH (08:56)
[2017-06-18] MEDS: FERROUS SULFATE 325 MG TAB PO SCH (08:57)
[2017-06-18] MEDS ORDERED: POTASSIUM CL 10 MEQ TAB PO ONE (08:58)
== END 2017-06-18 11:33 | DRG 29 ==
LOC: EDUNIT# → EEVIPCON 14:20 → F2N 17:22 → F3N 06-12 14:07
PROVIDERS: ADMIT Surgery; ATTEND Surgery
PROC: 02HV33Z Insertion of Infusion Device into Superior Vena Cava, Percutaneous Approach (ICD-10-PCS; 2017-06-04)
PROC: 3E10X8Z Irrigation of Skin and Mucous Membranes using Irrigating Substance (ICD-10-PCS; 2017-06-04)
PROC: 02HV33Z Insertion of Infusion Device into Superior Vena Cava, Percutaneous Approach (ICD-10-PCS; 2017-06-06)
PROC: 02HV33Z Insertion of Infusion Device into Superior Vena Cava, Percutaneous Approach (ICD-10-PCS; 2017-06-08)
PROC: 0PSC04Z Reposition Right Humeral Head with Internal Fixation Device, Open Approach (ICD-10-PCS; 2017-06-12)
PROC: 0HQBXZZ Repair Right Upper Arm Skin, External Approach (ICD-10-PCS; 2017-06-12)
PROC: 0RGA071 Fusion of Thoracolumbar Vertebral Joint with Autologous Tissue Substitute, Posterior Approach, Posterior Column, Open Approach (ICD-10-PCS; principal; 2017-06-13 14:45)
PROC: 0QS004Z Reposition Lumbar Vertebra with Internal Fixation Device, Open Approach (ICD-10-PCS; principal; 2017-06-13 14:45)
PROC: 0SG0071 Fusion of Lumbar Vertebral Joint with Autologous Tissue Substitute, Posterior Approach, Posterior Column, Open Approach (ICD-10-PCS; principal; 2017-06-13 14:45)
DX: S06.6X1A Traumatic subarachnoid hemorrhage with loss of consciousness of 30 minutes or less, initial encounter (principal); S02.101A Fracture of base of skull, right side, initial encounter for closed fracture; S02.19XA Other fracture of base of skull, initial encounter for closed fracture; S42.211A Unspecified displaced fracture of surgical neck of right humerus, initial encounter for closed fracture; S42.301A Unspecified fracture of shaft of humerus, right arm, initial encounter for closed fracture; S43.004A Unspecified dislocation of right shoulder joint, initial encounter; S41.011A Laceration without foreign body of right shoulder, initial encounter; S32.012A Unstable burst fracture of first lumbar vertebra, initial encounter for closed fracture; S32.008A Other fracture of unspecified lumbar vertebra, initial encounter for closed fracture; S22.088A Other fracture of T11-T12 vertebra, initial encounter for closed fracture; S06.339A Contusion and laceration of cerebrum, unspecified, with loss of consciousness of unspecified duration, initial encounter; S01.01XA Laceration without foreign body of scalp, initial encounter; H74.8X2 Other specified disorders of left middle ear and mastoid; S21.211A Laceration without foreign body of right back wall of thorax without penetration into thoracic cavity, initial encounter; I82.612 Acute embolism and thrombosis of superficial veins of left upper extremity; H91.92 Unspecified hearing loss, left ear; T14.8 Other injury of unspecified body region; E87.6 Hypokalemia; T82.898A Other specified complication of vascular prosthetic devices, implants and grafts, initial encounter; D50.0 Iron deficiency anemia secondary to blood loss (chronic); R11.2 Nausea with vomiting, unspecified; R09.02 Hypoxemia; M26.211 Malocclusion, Angle's class I; I10 Essential (primary) hypertension; R40.2411 Glasgow coma scale score 13-15, in the field [EMT or ambulance]; Y93.55 Activity, bike riding; V13.4XXA Pedal cycle driver injured in collision with car, pick-up truck or van in traffic accident, initial encounter; Y92.413 State road as the place of occurrence of the external cause; Y99.8 Other external cause status; Z88.0 Allergy status to penicillin
CPT/HCPCS: 92507-GN; 92523-GN; 96365; 97116-GP; 97162-GP; 97164-GP; 97167-GO; 97168-GO; 97530-GO; 97530-GP; 97535-GO; C1713; C1751; C1762; J0690; J1100; J1170; J1650; J1953; J2001; J2060; J2250; J2274; J2370; J2405; J2597; J2704; J2765; J3010; P9041; Q9967

== ENCOUNTER → 2017-08-01 | Outpatient (CLI) | payer OTHER | LOC: FIMAGING 10:09 | PROVIDERS: ATTEND Physician Assistant Surgical | DX: S02.101A Fracture of base of skull, right side, initial encounter for closed fracture (principal); Z86.79 Personal history of other diseases of the circulatory system ==

== ENCOUNTER → 2017-09-20 | Outpatient (CLI) | payer OTHER | LOC: FIMAGING 10:00 | PROVIDERS: ATTEND Physician Assistant Surgical | DX: S32.012D Unstable burst fracture of first lumbar vertebra, subsequent encounter for fracture with routine healing (principal) ==

== ENCOUNTER → 2017-10-18 | Outpatient (CLI) | payer OTHER | LOC: FIMAGING 10:15 | PROVIDERS: ATTEND Orthopaedic Surgery Hand Surgery | DX: S42.201G Unspecified fracture of upper end of right humerus, subsequent encounter for fracture with delayed healing (principal); S43.013 Anterior subluxation of unspecified humerus ==

== ENCOUNTER → 2017-12-07 | Outpatient (CLI) | payer OTHER | LOC: FIMAGING 10:32 | PROVIDERS: ATTEND Physician Assistant Surgical | DX: Z98.1 Arthrodesis status (principal) ==

== ENCOUNTER → 2018-01-11 | Outpatient (CLI) | payer OTHER, MEDICAID | LOC: FIMAGING 10:57 | PROVIDERS: ATTEND Orthopaedic Surgery Hand Surgery | PROC: CP1 Nuclear Medicine, Musculoskeletal System, Planar Nuclear Medicine Imaging (ICD-10-PCS; principal; 2018-01-11) | DX: M61.2 Paralytic calcification and ossification of muscle (principal); M19.011 Primary osteoarthritis, right shoulder; M19.012 Primary osteoarthritis, left shoulder | CPT/HCPCS: 78315; A9503 ==

== ENCOUNTER → 2018-04-29 | Outpatient (CLI) | payer BC, OTHER | LOC: FIMAGING 08:53 | PROVIDERS: ATTEND Orthopaedic Surgery Hand Surgery | DX: M61.2 Paralytic calcification and ossification of muscle (principal); S42.201D Unspecified fracture of upper end of right humerus, subsequent encounter for fracture with routine healing; S43.013 Anterior subluxation of unspecified humerus | CPT/HCPCS: 78315; A9503 ==

== ENCOUNTER → 2019-02-27 | Outpatient (CLI) | payer BC, OTHER | LOC: FIMAGING 09:54 | PROVIDERS: ATTEND Physician Assistant | DX: M25.511 Pain in right shoulder (principal); S42.201D Unspecified fracture of upper end of right humerus, subsequent encounter for fracture with routine healing ==